=== PATIENT | female | born 1955 | race Hispanic/Latino ===

== ENCOUNTER 2018-05-29 06:29 | Day surgery (SDC) | payer OTHER ==
[2018-05-28 15:21] LABS: BASOPHILS % (AUTO) 0.8 % (0.0-5.0); EOSINOPHILS % (AUTO) 2.8 % (0.0-8.0); HEMATOCRIT 38.5 % (36-48); LYMPHOCYTES % (AUTO) 28.3 % (21.0-51.0); MEAN CORPUSCULAR HEMOGLOBIN 27.6 pg (27.0-33.0); MEAN CORPUSCULAR HGB CONC 32.2 g/dL (32.0-36.0); MEAN CORPUSCULAR VOLUME 85.8 fL (79-99); MONOCYTES % (AUTO) 9.5 % (3.0-13.0); NEUTROPHILS % (AUTO) 58.6 % (40.0-77.0); NUCLEATED RED BLOOD CELLS 0.1 % (0.0-0.19); PLATELET COUNT (AUTO) 295 K/uL (130-400); RED BLOOD CELL COUNT(AUTO) 4.49 MIL/uL (4.00-5.50); RED CELL DISTRIBUTION WIDTH 14.3 % (11.0-15.5); WHITE BLOOD COUNT (AUTO) 5.4 K/uL (4.8-10.8)
[2018-05-28 15:23] VITALS: BP 113/72
[2018-05-28 15:44] LABS: CREATININE 0.8 mg/dL (0.5-1.5); POTASSIUM 4.4 mmol/L (3.5-5.1)
[2018-05-29] VITALS (20 sets, daily range): BP systolic 83–131; BP diastolic 52–67
[~2018-05-29] VITALS: Ht 162.6 cm; Wt 96.8 kg
[2018-05-29] MEDS: CEFAZOLIN SODIUM 1 GM VIAL IVP SCH ×2 (06:00→10:00)
[~2018-05-29 06:29] MED LIST: MULT1TAB70 PO
[2018-05-29] MEDS ORDERED: LACTATED RINGERS 1000ML 1,000 ML IV ONE ×2 (07:30→14:01)
[2018-05-29] MEDS ORDERED: DULO30CA51 PO (07:49)
[2018-05-29] MEDS ORDERED: HYDR-4060 PO (07:49)
[2018-05-29] MEDS ORDERED: NAPR-1023 PO (07:49)
[2018-05-29] MEDS ORDERED: DICL100G27 TP (07:49)
[2018-05-29] MEDS ORDERED: SUCCINYLCHOLINE 200MG/10ML SYR ONE (08:04)
[2018-05-29] MEDS ORDERED: LIDOCAINE PF 2% 5ML ABBOJECT ONE (08:04)
[2018-05-29] MEDS ORDERED: ROCURONIUM 10MG/1ML SYR 10 MG/ML ML ONE (08:05)
[2018-05-29] MEDS ORDERED: NEOSTIGMINE 5MG/5ML SYR IV ONE (08:05)
[2018-05-29] MEDS ORDERED: FENTANYL CITRATE PF 50 MCG/1 ML 2ML VIAL ONE (08:05)
[2018-05-29] MEDS ORDERED: DEXAMETHASONE SOD PHOSPHATE 10MG/ML 1ML VIAL ONE (08:05)
[2018-05-29] MEDS ORDERED: ONDANSETRON HCL 4 MG/2 ML VIAL ONE ×2 (08:05→13:26)
[2018-05-29] MEDS ORDERED: GLYCOPYRROLATE 1 MG/5 ML SYRINGE ONE (08:05)
[2018-05-29] MEDS ORDERED: PROPOFOL 10 MG/ML 20ML VIAL IV ONE (08:05)
[2018-05-29] MEDS ORDERED: MIDAZOLAM HCL 1 MG/ML 2ML VIAL ONE (08:05)
[2018-05-29] MEDS ORDERED: ROPIVACAINE 0.5% 5MG/ML 30ML IJ ONE (08:13)
[2018-05-29] MEDS ORDERED: EPHEDRINE SULFATE 50 MG/ML AMPULE ONE (09:44)
[2018-05-29] MEDS ORDERED: CEFAZOLIN SODIUM 1 GM VIAL ONE (10:04)
[2018-05-29] MEDS ORDERED: HYDR-4457 PO (11:25)
[2018-05-29] MEDS ORDERED: CEPH500B PO (11:25)
[2018-05-29] MEDS ORDERED: MEPERIDINE-PF 25 MG/ML SYG ONE ×2 (11:53→12:03)
[2018-05-29] MEDS ORDERED: KETOROLAC TROMETHAMINE 30MG/ML ONE (12:18)
[2018-05-29] MEDS ORDERED: METOCLOPRAMIDE 10 MG/2 ML VIAL ONE (13:26)
[2018-05-29] MEDS ORDERED: ONDANSETRON HCL 4 MG/2 ML VIAL IVP PRN (13:30)
[2018-05-29] MEDS ORDERED: MEPERIDINE-PF 25 MG/ML SYG IVP PRN (13:30)
[2018-05-29] MEDS ORDERED: KETOROLAC TROMETHAMINE 30MG/ML IVP PRN (13:30)
[2018-05-29] MEDS ORDERED: HYDROCODONE/ACETAMINOPHEN 5/325 MG TAB PO SCH (13:30)
[2018-05-29] MEDS ORDERED: METOCLOPRAMIDE 10 MG/2 ML VIAL IVP PRN (13:45)
== END 2018-05-29 15:40 | disposition home or self-care (01) ==
LOC: DAH 06:29
PROVIDERS: ATTEND Orthopaedic Surgery
DX: M75.101 Unspecified rotator cuff tear or rupture of right shoulder, not specified as traumatic (principal); Z68.36 Body mass index [BMI] 36.0-36.9, adult; M19.90 Unspecified osteoarthritis, unspecified site; Z79.899 Other long term (current) drug therapy; Z98.890 Other specified postprocedural states; Z90.710 Acquired absence of both cervix and uterus; Z85.828 Personal history of other malignant neoplasm of skin; Z96.651 Presence of right artificial knee joint; G89.29 Other chronic pain; Z88.8 Allergy status to other drugs, medicaments and biological substances; K21.9 Gastro-esophageal reflux disease without esophagitis; E66.01 Morbid (severe) obesity due to excess calories
CPT/HCPCS: 23412; 36415; 80048; 85025; A4218; A4649; A4930; A6204; C1763; J0330; J0690 ×2; J1100; J1885; J2001; J2175 ×2; J2250; J2405 ×2; J2704; J2710; J2765; J2795; J3010; J3490 ×2; J7120 ×3